=== PATIENT | male | born 1935 | race Caucasian/White ===

== ENCOUNTER 2019-01-17 12:34 | Outpatient (CLI) | payer MEDICARE, MEDICAID ==
[~2019-01-17 12:34] MED LIST: ASCO-134 PO; ASPI-1264 PO; ATOR40TA71 PO; CARV3.12 PO; CHOL10002 PO; CLOP75TA15 PO; DOCU-28 PO; FLO0.4C PO; FURO40TA4 PO; HYDR-4383 PO; MULT1TAB74 PO; POTA20TA19 PO
== END 2019-01-17 23:59 | disposition home or self-care (01) ==
LOC: RAD 12:34
PROVIDERS: ATTEND Family Medicine
DX: R13.11 Dysphagia, oral phase (principal); K21.9 Gastro-esophageal reflux disease without esophagitis; I34.0 Nonrheumatic mitral (valve) insufficiency; I11.0 Hypertensive heart disease with heart failure; I50.9 Heart failure, unspecified
CPT/HCPCS: 74230